=== PATIENT | female | born 1945 | race Caucasian/White ===

== ENCOUNTER → 2023-12-06 | Outpatient (CLI) | payer MEDICARE, BC ==
[~2023-12-06] MED LIST: IBUP-1986 PO; iohexol 300mg/ml 100ml inj. ONE
== END | disposition home or self-care (01) ==
LOC: 64 CT 09:50
PROVIDERS: ATTEND Internal Medicine Hematology & Oncology
DX: C50.911 Malignant neoplasm of unspecified site of right female breast (principal); R16.2 Hepatomegaly with splenomegaly, not elsewhere classified; D68.59 Other primary thrombophilia; R89.9 Unspecified abnormal finding in specimens from other organs, systems and tissues; N18.4 Chronic kidney disease, stage 4 (severe); R94.5 Abnormal results of liver function studies; D64.9 Anemia, unspecified; K76.0 Fatty (change of) liver, not elsewhere classified; M47.816 Spondylosis without myelopathy or radiculopathy, lumbar region
CPT/HCPCS: 74160; J3490; Q9967

== ENCOUNTER → 2025-07-06 | Outpatient (CLI) | payer MEDICARE, BC ==
[~2025-07-06] MED LIST changes: -iohexol 300mg/ml 100ml inj. ONE
--- NOTE | 2025-07-07 03:54 | CONSULTATION ---
DATE OF CONSULTATION: 07/06/2025 DICTATING PHYSICIAN: Cristela Morrow M.S., [facility] MODIFIED BARIUM SWALLOW STUDY REPORT REFERRING PHYSICIAN: Anusha Kingston M.D. HISTORY OF PRESENT ILLNESS: The patient is an 79-year-old female and consents to this evaluation. In history obtained from the patient and medical records, the patient had a diagnosis of thyroid cancer and she had thyroid surgery in 11/2024 where she had her entire thyroid taken out over the course of 2 weeks. The patient has noted symptoms of dysphagia that occurred before the surgery, but increased in frequency following the surgery. She notes that she has to be careful when eating and drinking because food and liquids start to get to the point where they will not pass through her esophagus and she begins to choke. She reports that this occurs especially with dry items. She notes that she has had to complete the Heimlich maneuver on herself and that her daughter has done the Heimlich maneuver on her several times. She also notes that she coughs when she lays down to go to sleep about twice a week. The patient also has prior medical history of breast cancer with mastectomy, hysterectomy, 2 knee surgeries, 2 back surgeries, and a neck surgery in 1988. CURRENT DIET: The patient is currently on a regular texture thin liquid diet with no restrictions. MEDICATIONS: Atenolol 50 mg 1 tablet once daily orally, Losartan potassium 50 mg 1 tablet once daily orally, loperamide HCl 2 mg p.r.n., calcium 600 mg, D3 125 mcg every other day, vitamin B12 500 mg once daily orally, amlodipine besylate 5 mg 1 tablet once daily orally, Pravastatin sodium 40 mg 1 tablet once daily orally, [place]-3 1000 mg 1 tablet once daily orally, fenofibrate 145 mg 1 pill once daily orally, Warfarin sodium 4 mg 1 tablet 3 days per week orally, levothyroxine sodium 150 mcg 1 tablet once daily orally, glimepiride 2 mg 1 tablet once daily orally p.r.n., amlodipine 5 mg 1 tablet once daily orally, Hair, Skin, and Nails 6000 mcg twice daily orally. PARAMETERS: The patient is seated in a lateral 90-degree view and administered the usual protocol of thin and nectar thick liquids, puree and solid consistencies, as well as self-regulated boluses of the liquids from a cup. RESULTS: In the oral stage of the swallow, lingual strength is mildly reduced. There is a mild oral residue noted after the tail of the bolus passes. In the pharyngeal stage of the swallow, swallow initiation is delayed to the level of the pyriform for 1 mL thin liquid bolus and the level of the vallecula for 3 mL thin liquid bolus. Swallow initiation is triggered by cranial nerve IX at the level of the faucial arches and so it appears that the triggering of this nerve has been impacted. It was also noted that the patient would have difficulty initiating a secondary swallow whenever a secondary swallow was required with the various boluses. Tongue base retraction was mild to moderately reduced. Anterior movement of the posterior pharyngeal wall was observed. Elevation of the hyothyroid complex was accomplished with moderate to severely reduced anterior and superior movement of the hyoid and epiglottic inversion. There was a mild decrease in PES opening. There was also noted to be what appeared to be a prevertebral thickening at the area of C6-C7, which the patient indicated was the site of her prior neck surgery. This thickening appeared to impact the transit of the bolus through the esophagus and so there was a moderate pharyngeal residue noted both at the level of the vallecula and also at the level of the PES opening. The patient was noted to with the 5 mL thin liquid bolus demonstrate penetration on the pharyngeal residue of this bolus when she would initiate a secondary swallow. This was not spontaneously cleared and so she had to be cued to clear her throat. ANTERIOR, POSTERIOR VIEW: In the AP plane, the bolus split symmetrically between the pyriform sinuses and there was proximal movement of the boluses to the level of the mid sternum. IMPRESSION: The patient demonstrates what appears to be a moderate pharyngeal esophageal stage swallowing disorder characterized by reduced tongue base retraction, delayed swallow initiation, decreased epiglottic inversion, and a prevertebral thickening at the area of C6-C7 that impacts the transit of the bolus through the esophagus. The patient demonstrated with penetration on the 5 mL thin liquid bolus due to pharyngeal residue. DIAGNOSES: R13.14, dysphagia, pharyngoesophageal phase, K21.9, gastroesophageal reflux disease, T17.920A, food in respiratory tract causing asphyxiation, C73 Malignant neoplasm of thyroid. PATIENT EDUCATION: Immediately following modified barium swallow study, the patient was able to view the results. The patient was able to see how the current status of the swallowing mechanism decreases her ability to swallow normally. She was educated on compensatory strategies, including taking small bites and sips, utilizing extra moisture and gravy with food items, and alternating her liquids and solids. She was also educated on dietary modifications for laryngopharyngeal reflux disease and she was educated on a recommendation for swallowing therapy to increase the strength of the swallowing musculature. The patient indicated that she has an area on the right side of her neck that her ENT, Dr. Estrella believes is a gland, but that there is going to be further testing done in that area and that she wishes to wait to begin that swallowing therapy until she meets again with Dr. Estrella and decides the plan of action for what was observed on the right side of the throat. RECOMMENDATIONS: 1. It is recommended that the patient utilize the safe swallowing strategies including alternating liquids and solids, extra moisture in gravy, and small bites and sips. 2. It is recommended that the patient receive swallowing therapy 1 time weekly for 12 weeks to improve the strength of the swallowing musculature. The patient indicated interest in this but wished to wait to begin swallowing therapy until after consulting with her ENT. LONG-TERM GOALS: The patient will maintain adequate hydration/nutrition with optimum safety and efficiency of swallow function on p.o. intake with overt signs and symptoms of aspiration decreased to once biweekly for the highest possible diet level. PROGNOSIS: Prognosis for the patient is fair to good considering patient motivation and willingness to learn, but also the impact of what appears to be prevertebral thickening at the area of the C6-C7. FUNCTIONAL ORAL INTAKE: The FOIS was administered to establish and document a change in the functional eating activities of this patient over time. This is a 7-point scale with 1 indicating no oral intake and totally tube dependent and 7 indicating total oral intake with no restrictions. This patient received a 6, which indicates she has a total oral diet with multiple consistencies without special preparation, but with specific food limitations and precautions. G-CODE: [id number]. Thank you very much for asking me to participate in the care of this kind patient. Should you have any questions regarding this evaluation or recommendations, please do not hesitate to contact me at [phone]. During this examination, 3:41 minutes of fluoroscopy time and 11.57 CAK mGy were utilized. Cristela Morrow M.S., [facility] TID: [id number] RECEIPT: [id number] SC/BAL MTDD
== END | disposition home or self-care (01) ==
LOC: RAD 14:06
PROVIDERS: ATTEND Family Medicine
DX: T17.920A Food in respiratory tract, part unspecified causing asphyxiation, initial encounter (principal); R13.14 Dysphagia, pharyngoesophageal phase; E11.9 Type 2 diabetes mellitus without complications; K21.9 Gastro-esophageal reflux disease without esophagitis; C73 Malignant neoplasm of thyroid gland; X58.XXXA Exposure to other specified factors, initial encounter; Y93.89 Activity, other specified; Y92.89 Other specified places as the place of occurrence of the external cause; Y99.8 Other external cause status
CPT/HCPCS: 74230